=== PATIENT | female | born 1985 | race Caucasian/White ===

== ENCOUNTER 2019-03-06 13:42 | Outpatient (CLI) | payer OTHER | END 2019-03-06 23:59 | disposition home or self-care (01) | LOC: RAD 13:42 | PROVIDERS: ATTEND Family Medicine | DX: R93.89 Abnormal findings on diagnostic imaging of other specified body structures (principal) | CPT/HCPCS: 76830; 76856 ==

== ENCOUNTER 2019-04-06 17:47 | Emergency (ER) | payer OTHER ==
[~2019-04-06] VITALS: Ht 160 cm; Wt 72.7 kg
[2019-04-06] MEDS ORDERED: ketorolac trometh. 30mg/ml inj. IM ONE (18:10)
[2019-04-06] MEDS ORDERED: diphenhydrAMINE 50 mg/ml inj IM ONE (18:10)
[2019-04-06] MEDS ORDERED: metoclopramide 5 mg/ml inj IM ONE (18:10)
[2019-04-06 19:21] VITALS: BP 137/107
== END 2019-04-06 19:25 | disposition home or self-care (01) ==
LOC: ER 17:48
DX: G43.909 Migraine, unspecified, not intractable, without status migrainosus (principal); R11.2 Nausea with vomiting, unspecified
CPT/HCPCS: 96372; 99283; J1200; J1885; J2765

== ENCOUNTER 2020-07-14 19:41 | Emergency (ER) | payer BC, OTHER ==
[~2020-07-14] VITALS: Ht 160 cm; Wt 76.0 kg
[2020-07-14 20:20] LABS: CLARITY,URINE CLEAR (Clear); COLOR,URINE YELLOW (Yellow); GLUCOSE, URINE NEGATIVE (Neg); KETONES,URINE TRACE mg/dl (Neg); LEUKOCYTE ESTERASE ,URINE NEGATIVE (Neg); NITRITES, URINE NEGATIVE (Neg); OCCULT BLOOD,URINE LARGE (Neg); PH,URINE 5.5 (4.8-8.0); PROTEIN,URINE NEGATIVE (Neg); UROBILINOGEN,URINE 0.2 E.U/dL (0.2-1.0)
[2020-07-14 20:21] LABS: BASOPHILS # (AUTO) 0.1 X10'3 (0-0.2); BASOPHILS % (AUTO) 0.8 % (0-1); EOSINOPHILS # (AUTO) 0.2 X10'3 (0-0.9); EOSINOPHILS % (AUTO) 2.3 % (0-6); HEMATOCRIT 39.7 % (35.0-45.0); HEMOGLOBIN 13.3 g/dl (12.0-16.0); LYMPHOCYTES # (AUTO) 2.3 X10'3 (1.1-4.8); MEAN CORPUSCULAR HEMOGLOBIN 29.8 PG (27.0-31.0); MEAN CORPUSCULAR HGB CONC 33.4 g/dL (33.0-36.5); MEAN CORPUSCULAR VOLUME 89.4 FL (78-98); MEAN PLATELET VOLUME 7.8 FL (7.4-10.4); MONOCYTES # (AUTO) 0.4 X10'3 (0-0.9); MONOCYTES % (AUTO) 4.2 % (2-12); NEUTROPHILS # (AUTO) 7.5 X10'3 (1.8-7.7); NEUTROPHILS % (AUTO) 70.7 % (42-75); PLATELET COUNT 420 X10'3 (140-440); RED BLOOD COUNT 4.44 X10'6 (4.20-5.60); RED CELL DISTRIBUTION WIDTH 13.9 % (11.5-14.5); WHITE BLOOD COUNT 10.6 X10'3 (4.5-11.0)
[2020-07-14 20:22] LABS: URINE HCG NEGATIVE (NEG)
[2020-07-14 20:23] LABS: UA COLLECTION TYPE CLN CATCH MIDSTREAM
[2020-07-14 20:26] LABS: SQUAMOUS EPITHELIAL CELL,UR MODERATE /LPF (FEW)
[2020-07-14 20:27] LABS: ALANINE AMINOTRANSFERASE 38 U/L (12-78); ALBUMIN/GLOBULIN RATIO 1.1 (1.1-1.5); ALKALINE PHOSPHATASE 105 IU/L (46-116); ASPARTATE AMINO TRANSFERASE 20 U/L (10-37); BILIRUBIN,TOTAL 0.3 MG/DL (0.1-1.0); BLOOD UREA NITROGEN 13 MG/DL (7-18); BUN/CREATININE RATIO 15.1 (6.6-38.0); CALCIUM 8.9 MG/DL (8.5-10.1); CREATININE 0.86 MG/DL (0.40-0.90); GLUCOSE 93 MG/DL (70-104); LIPASE 103 U/L (73-393); TOTAL CARBON DIOXIDE 23.9 MMOL/L (24-32); TOTAL PROTEIN 7.8 G/DL (6.4-8.2); eGFR 76 ML/MIN
[2020-07-14 20:28] LABS: BACTERIA,URINE 2+ /HPF (Neg)
[2020-07-14 20:29] LABS: WBC CLUMPS,URINE FEW /HPF (NEGATIVE)
[2020-07-14 20:35] LABS: ANION GAP 12 (8-16); CHLORIDE 105 MMOL/L (99-107); POTASSIUM 3.3 MMOL/L (3.5-5.1); SODIUM 141 MMOL/L (135-145)
[2020-07-14] MEDS ORDERED: ketorolac tromethamine 15mg/ml inj. IM ONE (20:50)
[2020-07-14] MEDS ORDERED: HYDR-3965 PO (22:14)
[2020-07-14] MEDS ORDERED: IBUP-1984 PO (22:14)
[2020-07-14] MEDS ORDERED: ONDA4TAB6 PO (22:14)
[2020-07-14] MEDS ORDERED: FLO0.4C PO (22:14)
[2020-07-14 22:22] VITALS: BP 162/103
== END 2020-07-14 22:22 | disposition home or self-care (01) ==
LOC: ER 19:41
DX: N20.0 Calculus of kidney (principal); R10.31 Right lower quadrant pain; Z79.899 Other long term (current) drug therapy
CPT/HCPCS: 36415; 74176; 80053; 81001; 81025; 83690; 85025; 87077; 87088; 87186; 96372; 99284; J1885

== ENCOUNTER 2020-07-18 05:30 | Inpatient (IN) | payer BC, OTHER ==
[2020-07-18] VITALS (20 sets, daily range): BP systolic 108–133; BP diastolic 53–85
[~2020-07-18] VITALS: Ht 160 cm; Wt 77.3 kg
[~2020-07-18 05:30] MED LIST: FLO0.4C PO; HYDR-3965 PO; IBUP-1984 PO; ONDA4TAB6 PO
[2020-07-18] MEDS ORDERED: normal saline 1000ML IV soln IVB ONE ×2 (05:40→05:55)
[2020-07-18] MEDS: morphine 4 MG/ML inj SYRINge IV PRN ×2 (05:45→07:22)
[2020-07-18] MEDS ORDERED: ondansetron/PF 4mg/2ml inj IV ONE (05:45)
[2020-07-18] MEDS ORDERED: ketorolac tromethamine 15mg/ml inj. IV ONE (05:50)
[2020-07-18] MEDS ORDERED: CefTRIAXone 2gm/D5W 50ml 50 ML IV ONE (05:50)
[2020-07-18] MEDS ORDERED: acetaminophen 325mg tablet PO ONE (05:55)
[2020-07-18 05:59] LABS: BASOPHILS % (AUTO) 0.3 % (0-1); EOSINOPHILS % (AUTO) 0 % (0-6); HEMATOCRIT 35.8 % (35.0-45.0); LYMPHOCYTES # (AUTO) 0.6 X10'3 (1.1-4.8); MEAN CORPUSCULAR HEMOGLOBIN 29.3 PG (27.0-31.0); MEAN CORPUSCULAR HGB CONC 33.4 g/dL (33.0-36.5); MEAN CORPUSCULAR VOLUME 87.8 FL (78-98); MEAN PLATELET VOLUME 7.5 FL (7.4-10.4); MONOCYTES # (AUTO) 0.8 X10'3 (0-0.9); MONOCYTES % (AUTO) 6.6 % (2-12); NEUTROPHILS # (AUTO) 11.2 X10'3 (1.8-7.7); NEUTROPHILS % (AUTO) 88.1 % (42-75); PLATELET COUNT 283 X10'3 (140-440); RED BLOOD COUNT 4.08 X10'6 (4.20-5.60); RED CELL DISTRIBUTION WIDTH 13.6 % (11.5-14.5); WHITE BLOOD COUNT 12.8 X10'3 (4.5-11.0)
[2020-07-18 06:05] LABS: CLARITY,URINE CLEAR (Clear); COLOR,URINE YELLOW (Yellow); GLUCOSE, URINE NEGATIVE (Neg); KETONES,URINE >=80 mg/dl (Neg); LEUKOCYTE ESTERASE ,URINE SMALL (Neg); NITRITES, URINE NEGATIVE (Neg); OCCULT BLOOD,URINE MODERATE (Neg); PROTEIN,URINE 30 mg/dl (Neg)
[2020-07-18 06:08] LABS: UA COLLECTION TYPE CLN CATCH MIDSTREAM
[2020-07-18 06:13] LABS: BACTERIA,URINE 2+ /HPF (Neg); MUCUS STRANDS NONE SEEN /LPF (Neg); RBC,URINE 0-2 /HPF (0-2); SQUAMOUS EPITHELIAL CELL,UR MODERATE /LPF (FEW)
[2020-07-18 06:15] LABS: ALANINE AMINOTRANSFERASE 42 U/L (12-78); ALBUMIN 3.1 G/DL (3.4-5.0); ALBUMIN/GLOBULIN RATIO 0.8 (1.1-1.5); ALKALINE PHOSPHATASE 126 IU/L (46-116); ANION GAP 10 (8-16); ASPARTATE AMINO TRANSFERASE 21 U/L (10-37); BILIRUBIN,TOTAL 0.5 MG/DL (0.1-1.0); BLOOD UREA NITROGEN 10 MG/DL (7-18); BUN/CREATININE RATIO 8.6 (6.6-38.0); CALCIUM 8.5 MG/DL (8.5-10.1); CHLORIDE 101 MMOL/L (99-107); CREATININE 1.16 MG/DL (0.40-0.90); GLUCOSE 118 MG/DL (70-104); POTASSIUM 3.1 MMOL/L (3.5-5.1); SODIUM 134 MMOL/L (135-145); TOTAL CARBON DIOXIDE 23.2 MMOL/L (24-32); TOTAL PROTEIN 7.2 G/DL (6.4-8.2); eGFR 54 ML/MIN
[2020-07-18] MEDS ORDERED: ESCI10TA PO (06:30)
[2020-07-18] MEDS ORDERED: magnesium 2GM in 50ml NS 50 ML IV ONE (06:35)
[2020-07-18 06:47] LABS: MAGNESIUM 1.7 MG/DL (1.5-2.4)
[2020-07-18] MEDS ORDERED: ondansetron/PF 4mg/2ml inj IV PRN ×2 (07:10→13:55)
[2020-07-18] MEDS ORDERED: magnesium hydroxide 30ml (MOM) UD suspension PO PRN (07:10)
[2020-07-18] MEDS ORDERED: HYDROcodone/acetaminophen 10/325mg tab PO PRN (07:10)
[2020-07-18] MEDS ORDERED: magnesium 4gm in 100ml NS 100 ML IV PRN (07:10)
[2020-07-18] MEDS ORDERED: HYDROcodone/acetaminophen 5mg/325mg tablet PO PRN (07:10)
[2020-07-18] MEDS ORDERED: magnesium 2GM in 50ml NS 50 ML IV PRN (07:10)
[2020-07-18] MEDS ORDERED: bisacodyl 10mg suppository rectal RC PRN (07:10)
[2020-07-18] MEDS ORDERED: potassium CL 10mEq/100ml bag 100 ML IV PRN (07:10)
[2020-07-18] MEDS ORDERED: mag hydrox/Alum hydrox/simeth 30ml oral suspension PO PRN (07:10)
[2020-07-18] MEDS ORDERED: magnesium Cl slow-release 64mg tablet PO PRN (07:10)
[2020-07-18] MEDS ORDERED: potassium Cl 20 mEq SR tablet PO PRN ×2 (07:10)
[2020-07-18] MEDS ORDERED: acetaminophen 325mg tablet PO PRN ×2 (07:10)
[2020-07-18] MEDS: potassium Cl 10 mEq/100mL bag IV SCH ×4 (07:22→09:40)
[2020-07-18 07:37] LABS: PARTIAL THROMBOPLASTIN TIME 31 SECONDS (22-32)
[2020-07-18] MEDS: K and/or MAG REPLACEMENT MC SCH ×2 (08:00→20:00)
[2020-07-18] MEDS: CefTRIAXone/D5W-Rocephin 1gm 50 ML IV SCH (08:16)
--- NOTE | 2020-07-18 08:24 | NUR ---
Received report from NIKI Augustin. Awaiting patient arrival to room 340B.
--- NOTE | 2020-07-18 08:41 | NUR ---
Received patient to room 340B via rdedrick accompanied by NIKI Augustin. Patient A&O and rates pain 2/10 at this time. Oriented to room and call light. Call light placed within patient's reach, bed is low and locked. Patient in room changing to gown. Educated urine will be strained.
[2020-07-18] MEDS: tamsulosin 0.4mg capsule PO SCH ×2 (09:24→21:04)
[2020-07-18] MEDS: normal saline 1000ml 1,000 ML IV SCH ×3 (09:25→20:59)
[2020-07-18] MEDS: HYDROmorphone inj. 0.5 MG/0.5 ML DISP.SYRIN IV PRN ×2 (09:53→13:54)
--- NOTE | 2020-07-18 10:01 | NUR ---
Patient c/o pain 5/10 to right abd. Dilaudid administered as ordered. Patient appears to be resting comfortably at this time. Dr. Gilman notified patient's K is 3.1 and there is order for K 10meq ordered for every hour and there is also potassium replacement protocol is also ordered. Dr. Gilman ordered for to stop K 10meq every hour and to follow replacement protocol.
[2020-07-18] MEDS: potassium CL 10mEq/100ml bag 100 ML IV PRN ×2 (11:09→14:02)
--- NOTE | 2020-07-18 13:40 | NUR ---
Dr. Michelle in to see patient.
[2020-07-18] MEDS ORDERED: ringers solution, lacted 1,000 ML IV SCH (13:55)
[2020-07-18] MEDS ORDERED: morphine 4 MG/ML inj SYRINge IV PRN (13:55)
[2020-07-18] MEDS ORDERED: hydrALAZINE 20mg/ml inj. IV PRN (13:55)
[2020-07-18] MEDS ORDERED: fentaNYL/PF 50MCG/1 ML 2ML syringe IV PRN ×2 (13:55)
[2020-07-18] MEDS ORDERED: labetalol 20mg/4ml (5mg/ml) syringe IV PRN (13:55)
[2020-07-18] MEDS ORDERED: morphine 2 MG/ML inj. syringe IV PRN (13:55)
--- NOTE | 2020-07-18 14:31 | NUR ---
patient down to OR
[2020-07-18] MEDS ORDERED: potassium Cl 2 mEq/ml inj IV ONE (14:32)
[2020-07-18] MEDS ORDERED: sevoflurane 250ml liquid IH ONE (14:32)
[2020-07-18] MEDS ORDERED: etomidate 2mg/ml inj. ONE (14:32)
[2020-07-18] MEDS ORDERED: dexamethasone sod phosphate 10mg/ml inj ONE (14:32)
[2020-07-18] MEDS ORDERED: ondansetron/PF 4mg/2ml inj ONE (14:32)
--- NOTE | 2020-07-18 14:34 | NUR ---
Attempted to call tabulating clerk at [phone] to give report x5 times. No answer. Patient already down to OR.
[2020-07-18] MEDS ORDERED: fentaNYL/PF 50MCG/1 ML 2ML syringe ONE (14:36)
[2020-07-18] MEDS ORDERED: midazolam 2 mg/2 ml injection ONE (14:36)
--- NOTE | 2020-07-18 14:53 | NUR ---
Problems reprioritized. Patient report given, questions answered & plan of care reviewed with NIKI Gutierres.
--- NOTE | 2020-07-18 15:15 | NUR ---
ADMITTED TO PACU FROM OR ACCOMPANIED BY ANESTHESIA. INTIAL PHYSICAL ASSESSMENT DONE AND RECORDED. REPORT RECEIVED FROM ANESTHESIA.
--- NOTE | 2020-07-18 16:05 | NUR ---
Report received from NET C DEVELOPERGracie
--- NOTE | 2020-07-18 16:30 | NUR ---
PACU DISCHARGE CRITERIA MET, REPORT GIVEN TO FLOOR. DENIES PAIN OR DISCOMFORT, TRANSFERRED TO ROOM IN STABLE GOOD CONDITION.
--- NOTE | 2020-07-18 18:00 | NUR ---
Patient in room [facility] 340. I have received report from Nenita PRINCE and had the opportunity to ask questions and assume patient care.
--- NOTE | 2020-07-18 18:10 | NUR ---
Problems reprioritized. Patient report given, questions answered & plan of care reviewed with NIKI Garcia.
[2020-07-18] MEDS ORDERED: ESCITALOPRAM OXALATE 5 MG TABLET PO SCH (21:00)
[2020-07-18] MEDS ORDERED: temazepam 15mg capsule PO PRN (21:00)
[2020-07-18] MEDS: lactobacillus rhamnosus 10,000 MMU CELLS/CAPSULE PO SCH (21:04)
[2020-07-19 00:37] VITALS: BP 102/70
[2020-07-19 04:00] VITALS: BP 118/67
[2020-07-19 05:23] LABS: BASOPHILS % (AUTO) 0.2 % (0-1); EOSINOPHILS % (AUTO) 0 % (0-6); LYMPHOCYTES # (AUTO) 1.1 X10'3 (1.1-4.8); LYMPHOCYTES % (AUTO) 5.6 % (21-51); MEAN CORPUSCULAR HEMOGLOBIN 29.6 PG (27.0-31.0); MEAN CORPUSCULAR HGB CONC 33.2 g/dL (33.0-36.5); MONOCYTES # (AUTO) 0.6 X10'3 (0-0.9); MONOCYTES % (AUTO) 3.2 % (2-12); PLATELET COUNT 290 X10'3 (140-440); RED BLOOD COUNT 3.71 X10'6 (4.20-5.60); RED CELL DISTRIBUTION WIDTH 14.1 % (11.5-14.5); WHITE BLOOD COUNT 19.8 X10'3 (4.5-11.0)
[2020-07-19] MEDS: normal saline 1000ml 1,000 ML IV SCH (05:26)
[2020-07-19 05:51] LABS: ALANINE AMINOTRANSFERASE 39 U/L (12-78); ALBUMIN 2.5 G/DL (3.4-5.0); ALBUMIN/GLOBULIN RATIO 0.6 (1.1-1.5); ALKALINE PHOSPHATASE 123 IU/L (46-116); ANION GAP 8 (8-16); ASPARTATE AMINO TRANSFERASE 21 U/L (10-37); BILIRUBIN,TOTAL 0.2 MG/DL (0.1-1.0); BLOOD UREA NITROGEN 10 MG/DL (7-18); BUN/CREATININE RATIO 12.2 (6.6-38.0); CHLORIDE 108 MMOL/L (99-107); CREATININE 0.82 MG/DL (0.40-0.90); GLUCOSE 123 MG/DL (70-104); MAGNESIUM 1.9 MG/DL (1.5-2.4); SODIUM 140 MMOL/L (135-145); TOTAL CARBON DIOXIDE 24.3 MMOL/L (24-32); TOTAL PROTEIN 6.4 G/DL (6.4-8.2); eGFR 81 ML/MIN
--- NOTE | 2020-07-19 06:20 | NUR ---
Problems reprioritized. Patient report given, questions answered & plan of care reviewed with Catrina PRINCE.
[2020-07-19] MEDS: lactobacillus rhamnosus 10,000 MMU CELLS/CAPSULE PO SCH (07:06)
[2020-07-19] MEDS: CefTRIAXone/D5W-Rocephin 1gm 50 ML IV SCH (07:07)
[2020-07-19 07:30] VITALS: BP 109/76
[2020-07-19] MEDS: K and/or MAG REPLACEMENT MC SCH (08:00)
[2020-07-19 11:28] VITALS: BP 126/83
[2020-07-19] MEDS ORDERED: LEVO500T89 PO (12:35)
[2020-07-19] MEDS ORDERED: ondansetron 4mg rapidly disintigrating tab PO PRN (12:40)
--- NOTE | 2020-07-19 16:12 | NUR ---
patient stable and appropriate for discharge home. iv removed, all belongings taken from room. New prescription transmitted to preferred pharmacy. All discharge instructions and education given to patient, all questions answered.
--- NOTE | 2020-07-19 16:15 | NUR ---
Student documentation: I have reviewed and agree with all interventions, assessments performed and documented by SN Jennie. Student Medication Administration: For this medication-pass time frame, all medication were reviewed, dispensed, administered and documented per hospital policy by SN Jennie.
== END 2020-07-19 15:38 | disposition home or self-care (01) | DRG 660 ==
LOC: ER 05:31 → EEVIPCON 05:31 → ED HOLD 07:10 → SUR 3N 08:34
PROVIDERS: ADMIT Family Medicine; ATTEND Family Medicine
PROC: BT161ZZ Fluoroscopy of Right Ureter using Low Osmolar Contrast (ICD-10-PCS; 2020-07-18)
PROC: 0T768DZ Dilation of Right Ureter with Intraluminal Device, Via Natural or Artificial Opening Endoscopic (ICD-10-PCS; principal; 2020-07-18 14:32)
DX: N13.6 Pyonephrosis (principal); E87.1 Hypo-osmolality and hyponatremia; E87.6 Hypokalemia; F41.9 Anxiety disorder, unspecified; R00.0 Tachycardia, unspecified; N17.9 Acute kidney failure, unspecified; Z87.442 Personal history of urinary calculi; Z90.49 Acquired absence of other specified parts of digestive tract; Z88.0 Allergy status to penicillin
CPT/HCPCS: 96361; 96365; 96375; 99285; Z7506; 36415; 71045; 74176; 76000; 80053; 81001; 82948; 83605; 83735; 84145; 85025; 85610; 85730; 87077; 87081; 87088; 87186; A4618; C1769; C2617; G0378; J0696; J1100; J1170; J1885; J2250; J2270; J2405; J3010; J3475; J3480; J7030

== ENCOUNTER 2020-07-29 11:03 | Outpatient (CLI) | payer BC ==
[~2020-07-29 11:03] MED LIST changes: +ESCI10TA PO; -HYDR-3965 PO
== END 2020-07-29 23:59 | disposition home or self-care (01) ==
LOC: RAD 11:03
PROVIDERS: ATTEND Urology
DX: N20.1 Calculus of ureter (principal)
CPT/HCPCS: 74018

== ENCOUNTER 2020-08-17 12:11 | Outpatient (CLI) | payer BC ==
[~2020-08-17 12:11] MED LIST changes: -FLO0.4C PO; -IBUP-1984 PO
== END 2020-08-17 23:59 | disposition home or self-care (01) ==
LOC: RAD 12:11
PROVIDERS: ATTEND Urology
DX: N20.1 Calculus of ureter (principal)
CPT/HCPCS: 74018

== ENCOUNTER 2020-09-17 05:56 | Day surgery (SDC) | payer BC ==
[2020-09-09 14:42] LABS: BASOPHILS % (AUTO) 0.4 % (0-1); EOSINOPHILS # (AUTO) 0.1 X10'3 (0-0.9); EOSINOPHILS % (AUTO) 1.5 % (0-6); LYMPHOCYTES % (AUTO) 22.8 % (21-51); MEAN CORPUSCULAR HEMOGLOBIN 29.2 PG (27.0-31.0); MEAN CORPUSCULAR HGB CONC 32.8 g/dL (33.0-36.5); MEAN PLATELET VOLUME 8.1 FL (7.4-10.4); MONOCYTES # (AUTO) 0.4 X10'3 (0-0.9); MONOCYTES % (AUTO) 5.1 % (2-12); NEUTROPHILS # (AUTO) 6.1 X10'3 (1.8-7.7); NEUTROPHILS % (AUTO) 70.2 % (42-75); PRE OP HEMATOCRIT 37.2 % (35.0-45.0); PRE OP HEMOGLOBIN 12.2 g/dL (12.0-16.0); PRE OP PLATELET COUNT 369 X10'3 (140-440); RED BLOOD COUNT 4.18 X10'6 (4.20-5.60); RED CELL DISTRIBUTION WIDTH 13.4 % (11.5-14.5)
[2020-09-09 14:46] LABS: ALBUMIN 3.9 G/DL (3.4-5.0); ALKALINE PHOSPHATASE 88 IU/L (46-116); BLOOD UREA NITROGEN 12 MG/DL (7-18); BUN/CREATININE RATIO 14.1 (6.6-38.0); CHLORIDE 105 MMOL/L (99-107); CREATININE 0.85 MG/DL (0.40-0.90); PRE OP ALT 29 U/L (30-65); PRE OP ANION GAP 9 (8-16); PRE OP AST 19 U/L (10-37); PRE OP BILIRUB, TOTAL 0.3 MG/DL (0.0-1.0); PRE OP GLUCOSE 108 MG/DL (70-104); PRE OP SODIUM 141 MMOL/L (135-145); TOTAL CARBON DIOXIDE 27.2 MMOL/L (24-32); TOTAL PROTEIN 7.9 G/DL (6.4-8.2); eGFR 78 ML/MIN
[2020-09-09 14:48] LABS: HCG SERUM QL NEGATIVE
[2020-09-09 14:55] LABS: PRE OP POTASSIUM 3.3 MMOL/L (3.4-5.1)
[2020-09-17] VITALS (8 sets, daily range): BP systolic 129–151; BP diastolic 85–104
[~2020-09-17] VITALS: Ht 160 cm; Wt 85.6 kg
[~2020-09-17 05:56] MED LIST changes: -ONDA4TAB6 PO; +clindamycin-Cleocin 900mg/D5W 50 ML IV ONE; +famotidine 20mg tablet PO ONE; +ringers solution, lacted 1,000 ML IV SCH
[2020-09-17] MEDS ORDERED: BUPIVAcaine/PF 2.5mg/ml (0.25%) 10ml vial ONE (06:44)
[2020-09-17] MEDS ORDERED: LIDOcaine 1% 30ml preserv. free vial ONE (07:23)
[2020-09-17] MEDS ORDERED: ringers solution, lacted 1,000 ML IV SCH (08:25)
[2020-09-17] MEDS ORDERED: morphine 2 MG/ML inj. syringe IV PRN (08:25)
[2020-09-17] MEDS ORDERED: morphine 4 MG/ML inj SYRINge IV PRN (08:25)
[2020-09-17] MEDS ORDERED: ondansetron/PF 4mg/2ml inj IV PRN (08:25)
[2020-09-17] MEDS ORDERED: meperidine/PF 25mg/ml syringe IV PRN ×3 (08:25)
[2020-09-17] MEDS ORDERED: proCHLORperazine 10 MG/2 ml inj IV PRN (08:25)
[2020-09-17] MEDS ORDERED: midazolam 2 mg/2 ml injection ONE (09:03)
[2020-09-17] MEDS ORDERED: fentaNYL/PF 50MCG/1 ML 2ML syringe ONE (09:03)
[2020-09-17] MEDS ORDERED: ketorolac trometh. 30mg/ml inj. ONE (09:20)
--- NOTE | 2020-09-17 09:25 | NUR ---
RECEIVED FROM OR VIA [facility] ACCOMPANIED BY ANESTHESIOLOGIST DR GOTTLIEB, REPORT GIVEN.PT AWAKE AND ALERT AND DENIES PAIN. 20 GAUGE PIV L FA PATENT AND RUNNING LR AT 100 ML/HR.RIGHT HAND DRESSING CDI, COMPRISED OF 4X4, WEBRIL AND BIAS WRAP. RUE ELEVATED AND ICE APPLIED. SKIN PINK AND WARM, BRISK CAP REFILL, DONALD, VSS, RESTING COMFORTABLY.
[2020-09-17] MEDS ORDERED: LIDOcaine/PRILOcaine 5gm cream TP ONE (09:50)
--- NOTE | 2020-09-17 10:25 | NUR ---
PT AWAKE AND ALERT AND DENIES PAIN. 20 GAUGE PIV L FA DC/D CATH TIP INTACT..RIGHT HAND DRESSING CDI, COMPRISED OF 4X4, WEBRIL AND BIAS WRAP. SKIN PINK AND WARM, BRISK CAP REFILL, DONALD, VSS. TOLERATING FLUIDS, ABLE TO DRESS SELF AND AMBULATE. DISCHARGE INSTRUCTIONS GIVEN AND PT VERBALIZED UNDERSTANDING. TRANSPORTED VIA WHEELCHAIR TO BROTHER IN PRIVATE VEHICLE TO HOME.
== END 2020-09-17 10:25 | disposition home or self-care (01) ==
LOC: PAS 05:56
PROVIDERS: ATTEND Orthopaedic Surgery Hand Surgery
DX: G56.01 Carpal tunnel syndrome, right upper limb (principal); Z20.828 Contact with and (suspected) exposure to other viral communicable diseases; F41.9 Anxiety disorder, unspecified; E66.9 Obesity, unspecified; Z68.33 Body mass index [BMI] 33.0-33.9, adult; Z88.0 Allergy status to penicillin; Z79.899 Other long term (current) drug therapy; Z90.49 Acquired absence of other specified parts of digestive tract; Z98.890 Other specified postprocedural states
CPT/HCPCS: 29848; 36415; 80053; 82948; 84703; 85025; 87635; J1885; J2001; J2250; J3010; J3490; A4215; A7000; J7120